=== PATIENT | female | born 1955 | race Caucasian/White ===

== ENCOUNTER 2021-05-19 12:56 | Inpatient (IN) | payer OTHER, MEDICARE, SELFPAY ==
[2021-05-19 13:26] VITALS: BP 145/84; PULSE 85; RESP 18; TEMP 36.7; O2SAT 96
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
[2021-05-19] MEDS: clonazePAM 0.5 MG TABLET PO ×2 (15:08→20:23)
--- NOTE | 2021-05-19 16:59 | PM.IMCN ---
History of Present Illness Data of Consult Service Date: 05/19/21 Requesting physician: Socorro Patterson Primary Care Provider: RUBÉN Flores HPI Reason for consult: Medical consultation 65-year-old woman admitted to for psychiatric care with history of schizophrenia, hypertension. Vital signs are stable. Patient has no acute medical complaints at this time. Review of Systems Review of Systems: Denies any recent fever chills or decrease in appetite respiratory denies any shortness of breath coverage production cardiovascular Denies chest pain gastrointestinal denies any dysphagia abdominal pain nausea vomiting or diarrhea genitourinary denies any dysuria frequency or hematuria musculoskeletal denies any joint pain or swelling neuropsych denies any weakness or seizures all other systems reviewed are negative [facility] Medical History (Updated 05/19/21 @ 17:12 by Jodi Apodaca NP) Barretts esophagus GERD (gastroesophageal reflux disease) Hypertension Pertinent family history: denies cardiac history Surgical History (Updated 05/19/21 @ 17:12 by Jodi Apodaca NP) H/O adenoidectomy History of fundoplication Social History Household Members: Spouse Housing: House Do you presently have visiting nurse or other home services: No Patient Tobacco Use Status: Former Tobacco user Quit Date: 2000 Tobacco use type: Cigarette Cigarette Packs Per Day: 2 Cigarettes Per Day: 40.0 Years Smoked: 15 Smoked in Last 30 Days: No Patient Interested in Nicotine Replacement: No Patient Given Instructions on How to Stop Smoking: No Second Hand Smoke Exposure: No Use of substances other than those prescribed or required for medical reasons: No Currently Displaying Signs/Symptoms of Drug Intoxication Withdrawal: No Any prior treatment program specific to substance use: No Have you been hit, kicked, punched, or otherwise hurt by someone within the past year? If so, by whom?: No Do you feel safe in your current relationship?: Yes Is there a partner from a previous relationship who is making you feel unsafe now?: No Are you made to feel afraid or neglected: No [facility] Practices: [facility] but I don't go to jew Advance Directives: No Advance Directives Information Provided: No Do you have thoughts of harming others: None Do you have a plan to hurt others: No Plan Recently lost weight without trying: No Eating poorly because of decreased appetite: No Patient : No : No Poor oral hygiene: No Meds Allergies Allergy/AdvReac Type Severity Reaction Status Date / Time epinephrine AdvReac HTN Verified 05/19/21 13:29 hydrochlorothiazide AdvReac hypokalemia Verified 05/19/21 13:28 triamterene AdvReac hypokalemia Verified 05/19/21 13:27 Active Medications: Current Medications Generic Name Dose Route Start Last Admin Trade Name Freq PRN Reason Stop Dose Admin Acetaminophen 650 mg 05/19/21 14:10 Acetaminophen 325 Mg Tablet PO Q6H PRN Headache/Pain Mild Scale (1-3) Al Hydroxide/Mg Hydroxide 30 ml 05/19/21 14:10 Magnesium Hydrox/Alum Hydrox 30 Ml Oral.Susp PO Q6H PRN Heartburn/Nausea Clonazepam 0.5 mg 05/19/21 21:00 Clonazepam 0.5 Mg Tablet PO BID [facility] Hydroxyzine HCl 25 mg 05/19/21 14:10 Hydroxyzine Hcl 25 Mg Tablet PO Q6H PRN Anxiety Losartan Potassium 50 mg 05/20/21 09:00 Losartan Potassium 50 Mg Tablet PO DAILY [facility] Protocol Lurasidone HCl 120 mg 05/19/21 17:00 Lurasidone Hcl 40 Mg Tablet PO DAILY@1700 [facility] Magnesium Hydroxide 30 ml 05/19/21 14:10 Milk Of Magnesia 30 Ml Oral.Susp PO DAILY PRN Constipation Perphenazine 4 mg 05/19/21 21:00 Perphenazine 4 Mg Tablet PO BEDTIME [facility] Spironolactone 25 mg 05/20/21 09:00 Spironolactone 25 Mg Tablet PO DAILY [facility] Protocol Trazodone HCl 100 mg 05/19/21 21:00 Trazodone Hcl 100 Mg Tablet PO BEDTIME [facility] Home Medications Medication Instructions Recorded Confirmed Last Taken Type citalopram 40 mg tablet 40 mg PO DAILY 05/19/21 05/19/21 Unknown History lorazepam 1 mg tablet 1 mg PO TID 05/19/21 05/19/21 Unknown History losartan 50 mg tablet 50 mg PO DAILY 05/19/21 05/19/21 Unknown History lurasidone 120 mg tablet (Latuda) 120 mg PO BEDTIME 05/19/21 05/19/21 Unknown History perphenazine 4 mg tablet 4 mg PO BEDTIME 05/19/21 05/19/21 Unknown History spironolactone 25 mg tablet 25 mg PO DAILY 05/19/21 05/19/21 Unknown History trazodone 50 mg tablet 75 mg PO BEDTIME 05/19/21 05/19/21 Unknown History Physical Exam Vital Signs and Narrative: Vital Signs: Last Vital Signs Temp 98.1 F 05/19/21 13:26 Pulse 85 05/19/21 13:26 Resp 18 05/19/21 13:26 BP 145/84 H 05/19/21 13:26 Pulse Ox 96 05/19/21 13:26 Appearing in no acute distress head is normocephalic atraumatic eyes pupils are PERRLA sclera is anicteric mouth throat mucous membranes are intact and moist neck is supple no lymphadenopathy, no JVD noted lung sounds are clear to auscultation heart regular rate rhythm, clear S1, S2 positive bowel sounds, abdomen is soft, nontender neuro patient is alert x3, no focal deficits Assessment and Plan (1) Schizoaffective disorder: Status: Acute (2) Hypertension: Status: Inactive 65-year-old woman admitted to for psychiatric care. Hypertension. Stable blood pressure. continue losartan and spironolactone. Mental health. Continue as per psychiatric team
[2021-05-19] MEDS: Lurasidone HCl 40 MG TABLET 120 MG PO (18:16)
--- NOTE | 2021-05-19 18:27 | PC.ADMIT ---
Kisha Rojas is a 65 year old woman admitted to from [facility] for exacerbation of longstanding schizoaffective disorder in the context of increase in life stressors as retires and finances and health insurance change. She has complex medical issues and appears somatically preoccupied. She notes she was hospitalized three times in her teens and has worked very hard to maintain safety and wellness as an outpatient since that time. She reports that her anxiety about upcoming loss of her current insurance coverage and fear that she and her will be unable to meet their mortgage payments when he retires has led to insomnia and frequent waking. She notes that now and throughout her life decrease in sleep has led to auditory hallucinations specifically muffled voices. The voices say derogatory things about her , they talk badly about me behind my back . They are not command hallucinations. Kisha is unable to identify ways of coping with anxiety besides medications. Kisha notes she does not work or have hobbies. The only activity she finds pleasurable is watching the birds in her yard. She has passive suicidal thoughts, If I didn't wake up it wouldn't matter but I won't hurt myself While doing her med reconciliation it became clear that at times patient overuses laxatives and simethicone. It is unclear if she does this with her prescribed medications. She denies current acute physical complaint.
[2021-05-19] MEDS: Perphenazine 4 MG TABLET PO (20:23)
[2021-05-19] MEDS: traZODone HCL 100 MG TABLET PO (20:23)
[2021-05-19] MEDS: Docusate Sodium 100 MG CAPSULE PO (20:23)
[2021-05-19] MEDS: Melatonin 3 MG TABLET 6 MG PO (20:23)
[2021-05-19] MEDS: Albuterol Sulfate 90 MCG 8 GM INHALER 2 PUFF INHALE (21:19)
[2021-05-19] MEDS: Fluticasone Propionate 250 MCG BLST.W.DEV 1 PUFF INHALE (21:19)
[2021-05-19 21:28] VITALS: BP 127/92; PULSE 88; TEMP 36.9; O2SAT 97
[2021-05-19] MEDS: hydrOXYzine HCL 25 MG TABLET PO (22:35)
[2021-05-19] MEDS: Nystatin Powder 15 GM BOTTLE 1 APPL TOPICAL (22:35)
[2021-05-20 06:00] VITALS: BP 135/82; PULSE 81; RESP 16; TEMP 36.2; O2SAT 95
--- NOTE | 2021-05-20 07:43 | HE.PHANOTE ---
Reached out to the provider to see if they would like to continue the non-formulary Restasis eye drops on the patients home medication list. If they would like to continue the medication in house, then the patients family would need to bring the medication in. Chayo Mcmillan, PharmD [phone]
[2021-05-20 08:50] LABS: Cholesterol 129 mg/dL; HDL Cholesterol 41 mg/dL; LDL Cholesterol Calculated 78 mg/dl; Triglycerides 52 mg/dL
[2021-05-20 08:56] LABS: Estimated Average Glucose 100 mg/dL; Hemoglobin A1c % 5.1 %
[2021-05-20] MEDS: Fluticasone Propionate 250 MCG BLST.W.DEV 1 PUFF INHALE ×2 (09:07→20:53)
[2021-05-20 09:08] VITALS: BP 130/85; PULSE 85
[2021-05-20] MEDS: Docusate Sodium 100 MG CAPSULE PO ×2 (09:08→20:54)
[2021-05-20] MEDS: clonazePAM 0.5 MG TABLET PO ×2 (09:08→20:54)
[2021-05-20] MEDS: Losartan Potassium 50 MG TABLET PO (09:08)
[2021-05-20 09:09] VITALS: BP 130/85; PULSE 85
[2021-05-20] MEDS: Spironolactone 25 MG TABLET PO (09:09)
[2021-05-20 09:13] LABS: Thyroid Stimulating Hormone 2.97 uIU/mL (0.32-4.0)
[2021-05-20] MEDS: Nystatin Powder 15 GM BOTTLE 1 APPL TOPICAL ×2 (09:14→20:57)
[2021-05-20 10:38] LABS: Folate 19.7 ng/mL (> or = 4.0); Vitamin B12 486 pg/mL (200-900)
[2021-05-20] MEDS: Acetaminophen 325 MG TABLET 650 MG PO (12:40)
--- NOTE | 2021-05-20 15:41 | HO.PSYCHPN ---
Subjective Subjective Date of Service: 05/21/21 Reason For Visit: anxiety/depression Subjective Notes: Conditional Voluntary Interim History: Pt slightly more visible today in unit and attending some groups. Pt does report after much questioning that she thinks others at times talk about her. Pt also reports that she ruminates over finances, other people's reactions towards here. She denies plan or intent to hurt self but feels hopeless. She reports feeling very tired, not sleeping but note nursing reports she is sleeping through the night. She is very anxious about medication changes and side effects. Medication Compliance: Yes Side effects from medications: No Review of Systems Review of Systems Denies any recent fever chills or decrease in appetite respiratory denies any shortness of breath coverage production cardiovascular Denies chest pain gastrointestinal denies any dysphagia abdominal pain nausea vomiting or diarrhea genitourinary denies any dysuria frequency or hematuria musculoskeletal denies any joint pain or swelling neuropsych denies any weakness or seizures all other systems reviewed are negative Constitutional: Reports fatigue and Reports lethargy Eyes: Denies blurry vision, Denies diplopia and Reports dry eyes Denies nasal congestion Cardiovascular: Denies chest pain, Denies chest pain at rest, Denies syncope, Denies rapid heart rate and Denies dyspnea Respiratory: Denies dyspnea Gastrointestinal: Reports constipation, Reports heartburn, Denies diarrhea, Denies nausea and Denies vomiting Musculoskeletal: Reports myalgias Denies syncope Endocrine: Reports fatigue Mental Status Exam Mental Status Exam Narrative: Appearance: casually groomed, fair hygiene, somewhat anxious Behavior: anxious but cooperative psychomotor: no agitation or retardation noted Speech:clear, normal rate/rhythm, spontaneous Thought process:mostly linear Thought content: no over paranoid, overly anxious about medications/side effects, [facility]/financial situation Mood: anxious Affect: congruent, restless SI:passive HI:denies VH/AH:intermittent Delusions:some suspiciousness Insight/judgment: fair x 2. Memory/cog: alert, oriented x 3. some memory gaps but not formally tested. May benefit from MOCA. Diagnostics Vital Signs (24Hr): Vital Signs - 24 hr 05/20/21 20:23 05/21/21 07:52 Temperature 97.1 F 97.2 F Pulse Rate 97 86 Blood Pressure 144/93 H 147/84 H Pulse Oximetry 94 Body Mass Index 30.0 Labs Labs: Laboratory Results - last 48 hr 05/20/21 05/20/21 05/20/21 07:41 07:41 07:41 Estimat Average Glucose 100 Hemoglobin A1c % 5.1 Triglycerides 52 Cholesterol 129 LDL Cholesterol, Calc 78 HDL Cholesterol 41 Vitamin B12 486 Folate 19.7 TSH 2.97 Medications Medications Current Medications Acetaminophen (Acetaminophen 325 Mg Tablet) 650 mg PO Q6H PRN PRN Reason: Headache/Pain Mild Scale (1-3) Last Admin: 05/20/21 12:40 Dose: 650 mg Documented by: Al Hydroxide/Mg Hydroxide (Magnesium Hydrox/Alum Hydrox 30 Ml Oral.Susp) 30 ml PO Q6H PRN PRN Reason: Heartburn/Nausea Albuterol Sulfate (Albuterol Sulfate 90 Mcg 8 Gm Inhaler) 2 puff INHALE Q4H PRN PRN Reason: Wheezing Last Admin: 05/19/21 21:19 Dose: 2 puff Documented by: Clonazepam (Clonazepam 0.5 Mg Tablet) 0.5 mg PO DAILY [facility] Clonazepam (Clonazepam 1 Mg Tablet) 1 mg PO BEDTIME [facility] Docusate Sodium (Docusate Sodium 100 Mg Capsule) 100 mg PO BID [facility] Last Admin: 05/21/21 08:15 Dose: 100 mg Documented by: Fluticasone Propionate (Fluticasone Propionate 250 Mcg Blst.W.Dev) 1 puff INHALE RBID [facility] Last Admin: 05/21/21 08:17 Dose: 1 puff Documented by: Hydroxyzine HCl (Hydroxyzine Hcl 25 Mg Tablet) 25 mg PO Q6H PRN PRN Reason: Anxiety Last Admin: 05/21/21 00:01 Dose: 25 mg Documented by: Losartan Potassium (Losartan Potassium 50 Mg Tablet) 50 mg PO DAILY [facility]; Protocol Last Admin: 05/21/21 08:15 Dose: 50 mg Documented by: Lurasidone HCl (Lurasidone Hcl 40 Mg Tablet) 120 mg PO DAILY@1700 [facility] Last Admin: 05/20/21 17:45 Dose: 120 mg Documented by: Magnesium Hydroxide (Milk Of Magnesia 30 Ml Oral.Susp) 30 ml PO DAILY PRN PRN Reason: Constipation Last Admin: 05/20/21 21:03 Dose: 30 ml Documented by: Melatonin (Melatonin 3 Mg Tablet) 6 mg PO BEDTIME [facility] Last Admin: 05/20/21 20:54 Dose: 6 mg Documented by: Non-Formulary Medication (Restasis) 1 drop EYE-BOTH BID [facility] Nystatin (Nystatin Powder 15 Gm Bottle) 1 appl TOPICAL BID [facility]; Protocol Last Admin: 05/21/21 10:07 Dose: 1 appl Documented by: Olanzapine (Olanzapine 2.5 Mg Tablet) 2.5 mg PO BID [facility] Potassium Chloride (Potassium Chloride Er 10 Meq Capsule.Er) 10 meq PO DAILY [facility] Last Admin: 05/21/21 08:15 Dose: 10 meq Documented by: Simethicone (Simethicone 80 Mg Tab.Chew) 80 mg PO QIDWMHS PRN PRN Reason: Gas Spironolactone (Spironolactone 25 Mg Tablet) 25 mg PO DAILY [facility]; Protocol Last Admin: 05/21/21 08:14 Dose: 25 mg Documented by: Tiotropium [place] (Tiotropium [place] 18 Mcg Cap.W.Dev) 1 puff INHALE RDAILY [facility] Last Admin: 05/21/21 08:17 Dose: 1 puff Documented by: Trazodone HCl (Trazodone Hcl 100 Mg Tablet) 100 mg PO BEDTIME [facility] Last Admin: 05/20/21 20:54 Dose: 100 mg Documented by: Allergies Allergies Allergy/AdvReac Type Severity Reaction Status Date / Time epinephrine AdvReac HTN Verified 05/19/21 13:29 hydrochlorothiazide AdvReac hypokalemia Verified 05/19/21 13:28 triamterene AdvReac hypokalemia Verified 05/19/21 13:27 Assessment & Plan Assessment & Plan (1) Schizoaffective disorder: Status: Acute Code(s): F25.9 - Schizoaffective disorder, unspecified (2) Hypertension: Status: Inactive Code(s): I10 - Essential (primary) hypertension Assessment and Plan: 65-year-old woman admitted to for psychiatric care. Hypertension. Stable blood pressure. continue losartan and spironolactone. Mental health. Continue as per psychiatric team Greater than 50% of the session was spent on counseling and/or coordination of care Reason for contiued inpatient stay Substantial Risk for: inability to function
[2021-05-20] MEDS: Lurasidone HCl 40 MG TABLET 120 MG PO (17:45)
[2021-05-20 20:23] VITALS: BP 144/93; PULSE 97; TEMP 36.2; O2SAT 94
[2021-05-20] MEDS: Perphenazine 4 MG TABLET PO (20:54)
[2021-05-20] MEDS: traZODone HCL 100 MG TABLET PO (20:54)
[2021-05-20] MEDS: Melatonin 3 MG TABLET 6 MG PO (20:54)
[2021-05-20] MEDS: Milk of Magnesia 30 ML ORAL.SUSP PO (21:03)
[2021-05-21] MEDS: hydrOXYzine HCL 25 MG TABLET PO ×2 (00:01→20:35)
[2021-05-21 07:52] VITALS: BP 147/84; PULSE 86; TEMP 36.2
[2021-05-21] MEDS: Spironolactone 25 MG TABLET PO (08:14)
[2021-05-21] MEDS: Docusate Sodium 100 MG CAPSULE PO ×2 (08:15→20:25)
[2021-05-21] MEDS: clonazePAM 0.5 MG TABLET PO (08:15)
[2021-05-21] MEDS: Losartan Potassium 50 MG TABLET PO (08:15)
[2021-05-21] MEDS: Fluticasone Propionate 250 MCG BLST.W.DEV 1 PUFF INHALE ×2 (08:17→20:35)
[2021-05-21] MEDS: Nystatin Powder 15 GM BOTTLE 1 APPL TOPICAL ×2 (10:07→20:35)
--- NOTE | 2021-05-21 15:44 | P.PNPSI_ITS ---
Subjective Subjective Date of Service: 05/21/21 Reason For Visit: anxiety/depression Subjective Notes: Conditional Voluntary Interim History: Pt presents as very anxious today. She reports she worries that once retires she may not want to be with him all the time, pt also overwhelmed by financial situation to some extreme. Pt reports she hears voices at times and some paranoia, very concern about side effects of medications and weight gain. We discussed switching perphenazine to olanzapine for mood/AH, given that in past pt had EPS and dystonic reactions with higher potency antipsychotics. Will continue latuda for now but may not be doing much for pt at this point. Medication Compliance: Yes Side effects from medications: No Attending Groups: Intermittent Review of Systems Review of Systems Denies any recent fever chills or decrease in appetite respiratory denies any shortness of breath coverage production cardiovascular Denies chest pain gastrointestinal denies any dysphagia abdominal pain nausea vomiting or diarrhea genitourinary denies any dysuria frequency or hematuria musculoskeletal denies any joint pain or swelling neuropsych denies any weakness or seizures all other systems reviewed are negative Constitutional: Reports fatigue and Reports lethargy Eyes: Denies blurry vision, Denies diplopia and Reports dry eyes Denies nasal congestion Cardiovascular: Denies chest pain, Denies chest pain at rest, Denies syncope, Denies rapid heart rate and Denies dyspnea Respiratory: Denies dyspnea Gastrointestinal: Reports constipation, Reports heartburn, Denies diarrhea, Denies nausea and Denies vomiting Musculoskeletal: Reports myalgias Denies syncope Endocrine: Reports fatigue Mental Status Exam Mental Status Exam Narrative: Appearance: casually groomed, fair hygiene, somewhat anxious Behavior: anxious but cooperative psychomotor: no agitation or retardation noted Speech:clear, normal rate/rhythm, spontaneous Thought process:mostly linear Thought content: no over paranoid, overly anxious about medications/side effects, [facility]/financial situation Mood: anxious Affect: congruent, restless SI:passive HI:denies VH/AH:intermittent Delusions:some suspiciousness Insight/judgment: fair x 2. Memory/cog: alert, oriented x 3. some memory gaps but not formally tested. May benefit from MOCA. Diagnostics Vital Signs (24Hr): Vital Signs - 24 hr 05/20/21 20:23 05/21/21 07:52 Temperature 97.1 F 97.2 F Pulse Rate 97 86 Blood Pressure 144/93 H 147/84 H Pulse Oximetry 94 Body Mass Index 30.0 Labs Labs: Laboratory Results - last 48 hr 05/20/21 05/20/21 05/20/21 07:41 07:41 07:41 Estimat Average Glucose 100 Hemoglobin A1c % 5.1 Triglycerides 52 Cholesterol 129 LDL Cholesterol, Calc 78 HDL Cholesterol 41 Vitamin B12 486 Folate 19.7 TSH 2.97 Medications Medications Current Medications Acetaminophen (Acetaminophen 325 Mg Tablet) 650 mg PO Q6H PRN PRN Reason: Headache/Pain Mild Scale (1-3) Last Admin: 05/20/21 12:40 Dose: 650 mg Documented by: Al Hydroxide/Mg Hydroxide (Magnesium Hydrox/Alum Hydrox 30 Ml Oral.Susp) 30 ml PO Q6H PRN PRN Reason: Heartburn/Nausea Albuterol Sulfate (Albuterol Sulfate 90 Mcg 8 Gm Inhaler) 2 puff INHALE Q4H PRN PRN Reason: Wheezing Last Admin: 05/19/21 21:19 Dose: 2 puff Documented by: Clonazepam (Clonazepam 0.5 Mg Tablet) 0.5 mg PO DAILY [facility] Clonazepam (Clonazepam 1 Mg Tablet) 1 mg PO BEDTIME [facility] Docusate Sodium (Docusate Sodium 100 Mg Capsule) 100 mg PO BID [facility] Last Admin: 05/21/21 08:15 Dose: 100 mg Documented by: Fluticasone Propionate (Fluticasone Propionate 250 Mcg Blst.W.Dev) 1 puff INHALE RBID [facility] Last Admin: 05/21/21 08:17 Dose: 1 puff Documented by: Hydroxyzine HCl (Hydroxyzine Hcl 25 Mg Tablet) 25 mg PO Q6H PRN PRN Reason: Anxiety Last Admin: 05/21/21 00:01 Dose: 25 mg Documented by: Losartan Potassium (Losartan Potassium 50 Mg Tablet) 50 mg PO DAILY [facility]; Protocol Last Admin: 05/21/21 08:15 Dose: 50 mg Documented by: Lurasidone HCl (Lurasidone Hcl 40 Mg Tablet) 120 mg PO DAILY@1700 [facility] Last Admin: 05/20/21 17:45 Dose: 120 mg Documented by: Magnesium Hydroxide (Milk Of Magnesia 30 Ml Oral.Susp) 30 ml PO DAILY PRN PRN Reason: Constipation Last Admin: 05/20/21 21:03 Dose: 30 ml Documented by: Melatonin (Melatonin 3 Mg Tablet) 6 mg PO BEDTIME [facility] Last Admin: 05/20/21 20:54 Dose: 6 mg Documented by: Non-Formulary Medication (Restasis) 1 drop EYE-BOTH BID [facility] Nystatin (Nystatin Powder 15 Gm Bottle) 1 appl TOPICAL BID [facility]; Protocol Last Admin: 05/21/21 10:07 Dose: 1 appl Documented by: Olanzapine (Olanzapine 2.5 Mg Tablet) 2.5 mg PO BID [facility] Potassium Chloride (Potassium Chloride Er 10 Meq Capsule.Er) 10 meq PO DAILY [facility] Last Admin: 05/21/21 08:15 Dose: 10 meq Documented by: Simethicone (Simethicone 80 Mg Tab.Chew) 80 mg PO QIDWMHS PRN PRN Reason: Gas Spironolactone (Spironolactone 25 Mg Tablet) 25 mg PO DAILY [facility]; Protocol Last Admin: 05/21/21 08:14 Dose: 25 mg Documented by: Tiotropium [place] (Tiotropium [place] 18 Mcg Cap.W.Dev) 1 puff INHALE RDAILY [facility] Last Admin: 05/21/21 08:17 Dose: 1 puff Documented by: Trazodone HCl (Trazodone Hcl 100 Mg Tablet) 100 mg PO BEDTIME [facility] Last Admin: 05/20/21 20:54 Dose: 100 mg Documented by: Allergies Allergies Allergy/AdvReac Type Severity Reaction Status Date / Time epinephrine AdvReac HTN Verified 05/19/21 13:29 hydrochlorothiazide AdvReac hypokalemia Verified 05/19/21 13:28 triamterene AdvReac hypokalemia Verified 05/19/21 13:27 Assessment & Plan Assessment & Plan (1) Schizoaffective disorder: Status: Acute Code(s): F25.9 - Schizoaffective disorder, unspecified (2) Hypertension: Status: Inactive Code(s): I10 - Essential (primary) hypertension Assessment and Plan: Mrs. Rojas is a 65 year-old woman with hx of schizoaffective disorder who was admitted due to increased anxious mood, ruminating thoughts, AH, vague paranoia. PLAN 1. will switch perphenazine to olanzapine for mood/anxiety/AH/paranoia 2. will continue latuda at current dose but suspect at this point this medication not doing much for pt. 3. Pt was switched from ativan to clonazepam, will increase night time dose of clonazepam to 1mg po qhs, will consider lowering as pt presents as much less anxious and ruminative. 4. Aftercare planning. Greater than 50% of the session was spent on counseling and/or coordination of care Reason for contiued inpatient stay Substantial Risk for: inability to function
[2021-05-21] MEDS: OLANZapine 2.5 MG TABLET PO ×2 (16:48→20:25)
[2021-05-21] MEDS: Lurasidone HCl 40 MG TABLET 120 MG PO (16:48)
[2021-05-21] MEDS: Escitalopram Oxalate 5 MG TABLET PO (17:47)
[2021-05-21 20:19] VITALS: BP 132/94; PULSE 93; TEMP 35.7; O2SAT 95
[2021-05-21] MEDS: clonazePAM 1 MG TABLET PO (20:25)
[2021-05-21] MEDS: Melatonin 3 MG TABLET 6 MG PO (20:25)
[2021-05-21] MEDS: traZODone HCL 100 MG TABLET PO (20:25)
--- NOTE | 2021-05-22 08:29 | HO.PSYCHPN ---
Subjective Subjective Date of Service: 05/23/21 Reason For Visit: anxiety/depression Interim History: 05/21:Pt presents as very anxious today. She reports she worries that once retires she may not want to be with him all the time, pt also overwhelmed by financial situation to some extreme. Pt reports she hears voices at times and some paranoia, very concern about side effects of medications and weight gain. We discussed switching perphenazine to olanzapine for mood/AH, given that in past pt had EPS and dystonic reactions with higher potency antipsychotics. Will continue latuda for now but may not be doing much for pt at this point. 05/22: Pt seen in [facility]. Feels mildly sedated but pleased with better sleep. Does not want any med changes today. Fall precautions reiterated Review of Systems Review of Systems Denies any recent fever chills or decrease in appetite respiratory denies any shortness of breath coverage production cardiovascular Denies chest pain gastrointestinal denies any dysphagia abdominal pain nausea vomiting or diarrhea genitourinary denies any dysuria frequency or hematuria musculoskeletal denies any joint pain or swelling neuropsych denies any weakness or seizures all other systems reviewed are negative Constitutional: Reports fatigue and Reports lethargy Eyes: Denies blurry vision, Denies diplopia and Reports dry eyes Denies nasal congestion Cardiovascular: Denies chest pain, Denies chest pain at rest, Denies syncope, Denies rapid heart rate and Denies dyspnea Respiratory: Denies dyspnea Gastrointestinal: Reports constipation, Reports heartburn, Denies diarrhea, Denies nausea and Denies vomiting Musculoskeletal: Reports myalgias Denies syncope Endocrine: Reports fatigue Mental Status Exam Mental Status Exam Narrative: Appearance: casually groomed, fair hygiene, somewhat anxious Behavior: anxious but cooperative psychomotor: no agitation or retardation noted Speech:clear, normal rate/rhythm, spontaneous Thought process:mostly linear Thought content: no over paranoid, overly anxious about medications/side effects, residential/financial situation Mood: anxious Affect: congruent, restless SI:passive HI:denies VH/AH:intermittent Delusions:some suspiciousness Insight/judgment: fair x 2. Memory/cog: alert, oriented x 3. some memory gaps but not formally tested. May benefit from MOCA. Diagnostics Vital Signs (24Hr): Vital Signs - 24 hr 05/21/21 20:19 Temperature 96.2 F L Pulse Rate 93 Blood Pressure 132/94 H Pulse Oximetry 95 Body Mass Index 30.0 Labs Results: 05/22/21 08:13 Labs: Laboratory Results - last 48 hr 05/20/21 05/20/21 05/20/21 07:41 07:41 07:41 Estimat Average Glucose 100 Hemoglobin A1c % 5.1 Triglycerides 52 Cholesterol 129 LDL Cholesterol, Calc 78 HDL Cholesterol 41 Vitamin B12 486 Folate 19.7 TSH 2.97 Medications Medications Current Medications Acetaminophen (Acetaminophen 325 Mg Tablet) 650 mg PO Q6H PRN PRN Reason: Headache/Pain Mild Scale (1-3) Last Admin: 05/20/21 12:40 Dose: 650 mg Documented by: Al Hydroxide/Mg Hydroxide (Magnesium Hydrox/Alum Hydrox 30 Ml Oral.Susp) 30 ml PO Q6H PRN PRN Reason: Heartburn/Nausea Albuterol Sulfate (Albuterol Sulfate 90 Mcg 8 Gm Inhaler) 2 puff INHALE Q4H PRN PRN Reason: Wheezing Last Admin: 05/19/21 21:19 Dose: 2 puff Documented by: Clonazepam (Clonazepam 0.5 Mg Tablet) 0.5 mg PO DAILY [facility] Clonazepam (Clonazepam 1 Mg Tablet) 1 mg PO BEDTIME [facility] Last Admin: 05/21/21 20:25 Dose: 1 mg Documented by: Docusate Sodium (Docusate Sodium 100 Mg Capsule) 100 mg PO BID [facility] Last Admin: 05/21/21 20:25 Dose: 100 mg Documented by: Escitalopram Oxalate (Escitalopram Oxalate 5 Mg Tablet) 5 mg PO DAILY [facility] Last Admin: 05/21/21 17:47 Dose: 5 mg Documented by: Fluticasone Propionate (Fluticasone Propionate 250 Mcg Blst.W.Dev) 1 puff INHALE RBID [facility] Last Admin: 05/21/21 20:35 Dose: 1 puff Documented by: Hydroxyzine HCl (Hydroxyzine Hcl 25 Mg Tablet) 25 mg PO Q6H PRN PRN Reason: Anxiety Last Admin: 05/21/21 20:35 Dose: 25 mg Documented by: Losartan Potassium (Losartan Potassium 50 Mg Tablet) 50 mg PO DAILY [facility]; Protocol Last Admin: 05/21/21 08:15 Dose: 50 mg Documented by: Lurasidone HCl (Lurasidone Hcl 40 Mg Tablet) 120 mg PO DAILY@1700 [facility] Last Admin: 05/21/21 16:48 Dose: 120 mg Documented by: Magnesium Hydroxide (Milk Of Magnesia 30 Ml Oral.Susp) 30 ml PO DAILY PRN PRN Reason: Constipation Last Admin: 05/20/21 21:03 Dose: 30 ml Documented by: Melatonin (Melatonin 3 Mg Tablet) 6 mg PO BEDTIME [facility] Last Admin: 05/21/21 20:25 Dose: 6 mg Documented by: Patient Own Medication (Restasis ) 1 each EYE-BOTH BID [facility] Nystatin (Nystatin Powder 15 Gm Bottle) 1 appl TOPICAL BID [facility]; Protocol Last Admin: 05/21/21 20:35 Dose: 1 appl Documented by: Olanzapine (Olanzapine 2.5 Mg Tablet) 2.5 mg PO BID [facility] Last Admin: 05/21/21 20:25 Dose: 2.5 mg Documented by: Potassium Chloride (Potassium Chloride Er 10 Meq Capsule.Er) 10 meq PO DAILY [facility] Last Admin: 05/21/21 08:15 Dose: 10 meq Documented by: Simethicone (Simethicone 80 Mg Tab.Chew) 80 mg PO QIDWMHS PRN PRN Reason: Gas Spironolactone (Spironolactone 25 Mg Tablet) 25 mg PO DAILY [facility]; Protocol Last Admin: 05/21/21 08:14 Dose: 25 mg Documented by: Tiotropium [place] (Tiotropium [place] 18 Mcg Cap.W.Dev) 1 puff INHALE RDAILY [facility] Last Admin: 05/21/21 08:17 Dose: 1 puff Documented by: Trazodone HCl (Trazodone Hcl 100 Mg Tablet) 100 mg PO BEDTIME [facility] Last Admin: 05/21/21 20:25 Dose: 100 mg Documented by: Allergies Allergies Allergy/AdvReac Type Severity Reaction Status Date / Time epinephrine AdvReac HTN Verified 05/19/21 13:29 hydrochlorothiazide AdvReac hypokalemia Verified 05/19/21 13:28 triamterene AdvReac hypokalemia Verified 05/19/21 13:27 Assessment & Plan Assessment & Plan (1) Schizoaffective disorder: Status: Acute Code(s): F25.9 - Schizoaffective disorder, unspecified (2) Hypertension: Status: Inactive Code(s): I10 - Essential (primary) hypertension Assessment and Plan: Mrs. Rojas is a 65 year-old woman with hx of schizoaffective disorder who was admitted due to increased anxious mood, ruminating thoughts, AH, vague paranoia. PLAN 1. will switch perphenazine to olanzapine for mood/anxiety/AH/paranoia 2. will continue latuda at current dose but suspect at this point this medication not doing much for pt. 3. Pt was switched from ativan to clonazepam, will increase night time dose of clonazepam to 1mg po qhs, will consider lowering as pt presents as much less anxious and ruminative. 4. Aftercare planning. 05/22: Ct above Rx plan Greater than 50% of the session was spent on counseling and/or coordination of care Reason for contiued inpatient stay Substantial Risk for: inability to function
[2021-05-22 08:45] VITALS: BP 166/90; PULSE 82; RESP 18; TEMP 36.2; O2SAT 99
[2021-05-22] MEDS: OLANZapine 2.5 MG TABLET PO ×2 (08:53→20:40)
[2021-05-22 08:54] VITALS: BP 166/90; PULSE 82
[2021-05-22] MEDS: Losartan Potassium 50 MG TABLET PO ×2 (08:54→13:19)
[2021-05-22] MEDS: Escitalopram Oxalate 5 MG TABLET PO (08:54)
[2021-05-22] MEDS: Docusate Sodium 100 MG CAPSULE PO ×2 (08:54→20:40)
[2021-05-22] MEDS: Spironolactone 25 MG TABLET PO (08:54)
[2021-05-22] MEDS: clonazePAM 0.5 MG TABLET PO (08:54)
[2021-05-22 09:48] LABS: Potassium 4.2 mmol/L (3.3-5.1)
[2021-05-22] MEDS: Nystatin Powder 15 GM BOTTLE 1 APPL TOPICAL ×2 (10:15→20:50)
[2021-05-22] MEDS: Fluticasone Propionate 250 MCG BLST.W.DEV 1 PUFF INHALE ×2 (10:15→20:50)
[2021-05-22 12:30] VITALS: BP 163/85
[2021-05-22 13:19] VITALS: BP 155/75; PULSE 92
[2021-05-22 13:40] VITALS: BP 155/75
--- NOTE | 2021-05-22 14:20 | PC.NURSE ---
Reported to Dr Devlin that 0900 BP was 166/90 and at 1230 BP was 163/85. I stated to Dr Devlin that I gave pt morning meds and to please advise if I should give patient any additional meds due to high BP. changed Losartan potassium order in system
[2021-05-22] MEDS: Lurasidone HCl 40 MG TABLET 120 MG PO (18:05)
[2021-05-22] MEDS: Acetaminophen 325 MG TABLET 650 MG PO (19:11)
[2021-05-22] MEDS: traZODone HCL 100 MG TABLET PO (20:40)
[2021-05-22] MEDS: Melatonin 3 MG TABLET 6 MG PO (20:40)
[2021-05-22] MEDS: hydrOXYzine HCL 25 MG TABLET PO (20:40)
[2021-05-22] MEDS: clonazePAM 1 MG TABLET PO (20:40)
[2021-05-22 20:53] VITALS: BP 135/85; PULSE 88; TEMP 35.4; O2SAT 96
[2021-05-23 07:50] VITALS: BP 126/75; PULSE 88; RESP 18; TEMP 36.3; O2SAT 97
[2021-05-23 08:08] VITALS: BP 126/75; PULSE 88
[2021-05-23] MEDS: Losartan Potassium 50 MG TABLET 100 MG PO (08:08)
[2021-05-23 08:09] VITALS: BP 126/75; PULSE 88
[2021-05-23] MEDS: clonazePAM 0.5 MG TABLET PO (08:09)
[2021-05-23] MEDS: Escitalopram Oxalate 5 MG TABLET PO (08:09)
[2021-05-23] MEDS: Docusate Sodium 100 MG CAPSULE PO ×2 (08:09→20:28)
[2021-05-23] MEDS: OLANZapine 2.5 MG TABLET PO ×2 (08:09→20:28)
[2021-05-23] MEDS: Spironolactone 25 MG TABLET PO (08:09)
--- NOTE | 2021-05-23 08:10 | HO.PSYCHPN ---
Subjective Subjective Date of Service: 05/23/21 Reason For Visit: anxiety/depression Interim History: 05/21:Pt presents as very anxious today. She reports she worries that once retires she may not want to be with him all the time, pt also overwhelmed by financial situation to some extreme. Pt reports she hears voices at times and some paranoia, very concern about side effects of medications and weight gain. We discussed switching perphenazine to olanzapine for mood/AH, given that in past pt had EPS and dystonic reactions with higher potency antipsychotics. Will continue latuda for now but may not be doing much for pt at this point. 05/22: Pt seen in [facility]. Feels mildly sedated but pleased with better sleep. Does not want any med changes today. Fall precautions reiterated 05/23: Pleased with second night of good sleep. Some a.m sedation wears off quickly. Ct med regimen Medication Compliance: Yes Side effects from medications: No Review of Systems Acute medical concerns: Yes Review of Systems Review of Systems Denies any recent fever chills or decrease in appetite respiratory denies any shortness of breath coverage production cardiovascular Denies chest pain gastrointestinal denies any dysphagia abdominal pain nausea vomiting or diarrhea genitourinary denies any dysuria frequency or hematuria musculoskeletal denies any joint pain or swelling neuropsych denies any weakness or seizures all other systems reviewed are negative Constitutional: Reports fatigue and Reports lethargy Eyes: Denies blurry vision, Denies diplopia and Reports dry eyes Denies nasal congestion Cardiovascular: Denies chest pain, Denies chest pain at rest, Denies syncope, Denies rapid heart rate and Denies dyspnea Respiratory: Denies dyspnea Gastrointestinal: Reports constipation, Reports heartburn, Denies diarrhea, Denies nausea and Denies vomiting Musculoskeletal: Reports myalgias Denies syncope Endocrine: Reports fatigue Mental Status Exam Mental Status Exam Narrative: Appearance: casually groomed, fair hygiene, somewhat anxious Behavior: anxious but cooperative psychomotor: no agitation or retardation noted Speech:clear, normal rate/rhythm, spontaneous Thought process:mostly linear Thought content: no over paranoid, overly anxious about medications/side effects, care home/financial situation Mood: anxious Affect: congruent, restless SI:passive HI:denies VH/AH:intermittent Delusions:some suspiciousness Insight/judgment: fair x 2. Memory/cog: alert, oriented x 3. some memory gaps but not formally tested. May benefit from MOCA. Diagnostics Vital Signs (24Hr): Vital Signs - 24 hr 05/22/21 08:45 05/22/21 08:54 05/22/21 12:30 Temperature 97.2 F Pulse Rate 82 82 Respiratory Rate 18 Blood Pressure 166/90 H 166/90 H 163/85 H Pulse Oximetry 99 05/22/21 13:19 05/22/21 13:40 05/22/21 20:53 Temperature 95.8 F L Pulse Rate 92 88 Respiratory Rate Blood Pressure 155/75 H 155/75 H 135/85 Pulse Oximetry 96 Body Mass Index 30.0 Labs Results: 05/22/21 08:13 Labs: Laboratory Results - last 48 hr 05/22/21 08:13 Potassium 4.2 Medications Medications Current Medications Acetaminophen (Acetaminophen 325 Mg Tablet) 650 mg PO Q6H PRN PRN Reason: Headache/Pain Mild Scale (1-3) Last Admin: 05/22/21 19:11 Dose: 650 mg Documented by: Al Hydroxide/Mg Hydroxide (Magnesium Hydrox/Alum Hydrox 30 Ml Oral.Susp) 30 ml PO Q6H PRN PRN Reason: Heartburn/Nausea Albuterol Sulfate (Albuterol Sulfate 90 Mcg 8 Gm Inhaler) 2 puff INHALE Q4H PRN PRN Reason: Wheezing Last Admin: 05/19/21 21:19 Dose: 2 puff Documented by: Clonazepam (Clonazepam 0.5 Mg Tablet) 0.5 mg PO DAILY [facility] Last Admin: 05/22/21 08:54 Dose: 0.5 mg Documented by: Clonazepam (Clonazepam 1 Mg Tablet) 1 mg PO BEDTIME [facility] Last Admin: 05/22/21 20:40 Dose: 1 mg Documented by: Docusate Sodium (Docusate Sodium 100 Mg Capsule) 100 mg PO BID [facility] Last Admin: 05/22/21 20:40 Dose: 100 mg Documented by: Escitalopram Oxalate (Escitalopram Oxalate 5 Mg Tablet) 5 mg PO DAILY [facility] Last Admin: 05/22/21 08:54 Dose: 5 mg Documented by: Fluticasone Propionate (Fluticasone Propionate 250 Mcg Blst.W.Dev) 1 puff INHALE RBID [facility] Last Admin: 05/22/21 20:50 Dose: 1 puff Documented by: Hydroxyzine HCl (Hydroxyzine Hcl 25 Mg Tablet) 25 mg PO Q6H PRN PRN Reason: Anxiety Last Admin: 05/22/21 20:40 Dose: 25 mg Documented by: Losartan Potassium (Losartan Potassium 50 Mg Tablet) 100 mg PO DAILY [facility]; Protocol Lurasidone HCl (Lurasidone Hcl 40 Mg Tablet) 120 mg PO DAILY@1700 [facility] Last Admin: 05/22/21 18:05 Dose: 120 mg Documented by: Magnesium Hydroxide (Milk Of Magnesia 30 Ml Oral.Susp) 30 ml PO DAILY PRN PRN Reason: Constipation Last Admin: 05/20/21 21:03 Dose: 30 ml Documented by: Melatonin (Melatonin 3 Mg Tablet) 6 mg PO BEDTIME [facility] Last Admin: 05/22/21 20:40 Dose: 6 mg Documented by: Patient Own Medication (Restasis ) 1 each EYE-BOTH BID [facility] Last Admin: 05/22/21 20:50 Dose: 1 each Documented by: Nystatin (Nystatin Powder 15 Gm Bottle) 1 appl TOPICAL BID [facility]; Protocol Last Admin: 05/22/21 20:50 Dose: 1 appl Documented by: Olanzapine (Olanzapine 2.5 Mg Tablet) 2.5 mg PO BID [facility] Last Admin: 05/22/21 20:40 Dose: 2.5 mg Documented by: Potassium Chloride (Potassium Chloride Er 10 Meq Capsule.Er) 10 meq PO DAILY [facility] Last Admin: 05/22/21 08:53 Dose: 10 meq Documented by: Simethicone (Simethicone 80 Mg Tab.Chew) 80 mg PO QIDWMHS PRN PRN Reason: Gas Spironolactone (Spironolactone 25 Mg Tablet) 25 mg PO DAILY [facility]; Protocol Last Admin: 05/22/21 08:54 Dose: 25 mg Documented by: Tiotropium [place] (Tiotropium [place] 18 Mcg Cap.W.Dev) 1 puff INHALE RDAILY [facility] Last Admin: 05/22/21 10:16 Dose: 1 puff Documented by: Trazodone HCl (Trazodone Hcl 100 Mg Tablet) 100 mg PO BEDTIME [facility] Last Admin: 05/22/21 20:40 Dose: 100 mg Documented by: Allergies Allergies Allergy/AdvReac Type Severity Reaction Status Date / Time epinephrine AdvReac HTN Verified 05/19/21 13:29 hydrochlorothiazide AdvReac hypokalemia Verified 05/19/21 13:28 triamterene AdvReac hypokalemia Verified 05/19/21 13:27 Assessment & Plan Assessment & Plan (1) Schizoaffective disorder: Status: Acute Code(s): F25.9 - Schizoaffective disorder, unspecified (2) Hypertension: Status: Inactive Code(s): I10 - Essential (primary) hypertension Assessment and Plan: Mrs. Rojas is a 65 year-old woman with hx of schizoaffective disorder who was admitted due to increased anxious mood, ruminating thoughts, AH, vague paranoia. PLAN 1. will switch perphenazine to olanzapine for mood/anxiety/AH/paranoia 2. will continue latuda at current dose but suspect at this point this medication not doing much for pt. 3. Pt was switched from ativan to clonazepam, will increase night time dose of clonazepam to 1mg po qhs, will consider lowering as pt presents as much less anxious and ruminative. 4. Aftercare planning. 05/23: Ct above Rx plan Greater than 50% of the session was spent on counseling and/or coordination of care Reason for contiued inpatient stay Substantial Risk for: inability to function
[2021-05-23] MEDS: Nystatin Powder 15 GM BOTTLE 1 APPL TOPICAL ×2 (10:21→20:28)
[2021-05-23] MEDS: Fluticasone Propionate 250 MCG BLST.W.DEV 1 PUFF INHALE ×2 (10:21→20:28)
[2021-05-23] MEDS: Acetaminophen 325 MG TABLET 650 MG PO (10:48)
[2021-05-23] MEDS: Lurasidone HCl 40 MG TABLET 120 MG PO (18:11)
[2021-05-23 20:20] VITALS: BP 146/84; PULSE 80; RESP 18; TEMP 36.4; O2SAT 97
[2021-05-23] MEDS: traZODone HCL 100 MG TABLET PO (20:28)
[2021-05-23] MEDS: Melatonin 3 MG TABLET 6 MG PO (20:28)
[2021-05-23] MEDS: clonazePAM 1 MG TABLET PO (20:28)
[2021-05-23] MEDS: Milk of Magnesia 30 ML ORAL.SUSP PO (20:28)
[2021-05-23] MEDS: hydrOXYzine HCL 25 MG TABLET PO (21:42)
[2021-05-24 06:00] VITALS: BP 143/82; PULSE 70; RESP 20; TEMP 36.4; O2SAT 98
[2021-05-24] MEDS: Escitalopram Oxalate 5 MG TABLET PO (08:31)
[2021-05-24] MEDS: Losartan Potassium 50 MG TABLET 100 MG PO (08:31)
[2021-05-24] MEDS: Spironolactone 25 MG TABLET PO (08:32)
[2021-05-24] MEDS: OLANZapine 2.5 MG TABLET PO (08:32)
[2021-05-24] MEDS: clonazePAM 0.5 MG TABLET PO ×2 (08:32→21:14)
[2021-05-24] MEDS: Docusate Sodium 100 MG CAPSULE PO (08:32)
[2021-05-24] MEDS: Fluticasone Propionate 250 MCG BLST.W.DEV 1 PUFF INHALE ×2 (08:34→21:11)
[2021-05-24] MEDS: Nystatin Powder 15 GM BOTTLE 1 APPL TOPICAL ×2 (08:34→21:18)
--- NOTE | 2021-05-24 13:48 | HO.PSYCHPN ---
Subjective Subjective Date of Service: 05/24/21 Reason For Visit: anxiety/depression Subjective Notes: Conditional Voluntary Healthcare Proxy: No Guardianship: No Interim History: Pt reports feeling slightly less anxious. She reports sleeping better as well. She reports less ruminations about her upcoming longterm, financial situation, change in health insurance. She denies SI/HI. She does report some mild sedation during the day and constipation. She has been more visible in the unit, social with select peers. We discussed decreasing clonazepam at bedtime, increasing olanzapine at night. suspect olanzapine decreasing anxiety/paranoia and ruminations. Medication Compliance: Yes Side effects from medications: No Review of Systems Review of Systems Denies any recent fever chills or decrease in appetite respiratory denies any shortness of breath coverage production cardiovascular Denies chest pain gastrointestinal denies any dysphagia abdominal pain nausea vomiting or diarrhea genitourinary denies any dysuria frequency or hematuria musculoskeletal denies any joint pain or swelling neuropsych denies any weakness or seizures all other systems reviewed are negative Constitutional: Reports fatigue and Reports lethargy Eyes: Denies blurry vision, Denies diplopia and Reports dry eyes Denies nasal congestion Cardiovascular: Denies chest pain, Denies chest pain at rest, Denies syncope, Denies rapid heart rate and Denies dyspnea Respiratory: Denies dyspnea Gastrointestinal: Reports constipation, Reports heartburn, Denies diarrhea, Denies nausea and Denies vomiting Musculoskeletal: Reports myalgias Denies syncope Endocrine: Reports fatigue Mental Status Exam Mental Status Exam Narrative: Appearance: casually groomed, fair hygiene, somewhat anxious Behavior: anxious but cooperative psychomotor: no agitation or retardation noted Speech:clear, normal rate/rhythm, spontaneous Thought process:mostly linear Thought content: no overt paranoia, less anxious about medications/side effects, longterm/financial situation Mood: anxious Affect: congruent, restless SI:denies HI:denies VH/AH:intermittent Delusions:some suspiciousness Insight/judgment: fair x 2. Memory/cog: alert, oriented x 3. some memory gaps but not formally tested. May benefit from MOCA. Diagnostics Vital Signs (24Hr): Vital Signs - 24 hr 05/23/21 20:20 05/24/21 06:00 Temperature 97.6 F 97.6 F Pulse Rate 80 70 Respiratory Rate 18 20 Blood Pressure 146/84 H 143/82 H Pulse Oximetry 97 98 Body Mass Index 30.0 Labs Results: 05/22/21 08:13 Medications Medications Current Medications Acetaminophen (Acetaminophen 325 Mg Tablet) 650 mg PO Q6H PRN PRN Reason: Headache/Pain Mild Scale (1-3) Last Admin: 05/23/21 10:48 Dose: 650 mg Documented by: Al Hydroxide/Mg Hydroxide (Magnesium Hydrox/Alum Hydrox 30 Ml Oral.Susp) 30 ml PO Q6H PRN PRN Reason: Heartburn/Nausea Albuterol Sulfate (Albuterol Sulfate 90 Mcg 8 Gm Inhaler) 2 puff INHALE Q4H PRN PRN Reason: Wheezing Last Admin: 05/19/21 21:19 Dose: 2 puff Documented by: Clonazepam (Clonazepam 0.5 Mg Tablet) 0.5 mg PO BID [facility] Docusate Sodium (Docusate Sodium 100 Mg Capsule) 100 mg PO BID [facility] Last Admin: 05/24/21 08:32 Dose: 100 mg Documented by: Escitalopram Oxalate (Escitalopram Oxalate 5 Mg Tablet) 5 mg PO DAILY [facility] Last Admin: 05/24/21 08:31 Dose: 5 mg Documented by: Fluticasone Propionate (Fluticasone Propionate 250 Mcg Blst.W.Dev) 1 puff INHALE RBID [facility] Last Admin: 05/24/21 08:34 Dose: 1 puff Documented by: Hydroxyzine HCl (Hydroxyzine Hcl 25 Mg Tablet) 25 mg PO Q6H PRN PRN Reason: Anxiety Last Admin: 05/23/21 21:42 Dose: 25 mg Documented by: Losartan Potassium (Losartan Potassium 50 Mg Tablet) 100 mg PO DAILY [facility]; Protocol Last Admin: 05/24/21 08:31 Dose: 100 mg Documented by: Lurasidone HCl (Lurasidone Hcl 40 Mg Tablet) 120 mg PO DAILY@1700 [facility] Last Admin: 05/23/21 18:11 Dose: 120 mg Documented by: Magnesium Hydroxide (Milk Of Magnesia 30 Ml Oral.Susp) 30 ml PO DAILY PRN PRN Reason: Constipation Last Admin: 05/23/21 20:28 Dose: 30 ml Documented by: Melatonin (Melatonin 3 Mg Tablet) 6 mg PO BEDTIME [facility] Last Admin: 05/23/21 20:28 Dose: 6 mg Documented by: Patient Own Medication (Restasis ) 1 each EYE-BOTH BID [facility] Last Admin: 05/24/21 08:34 Dose: 1 each Documented by: Nystatin (Nystatin Powder 15 Gm Bottle) 1 appl TOPICAL BID [facility]; Protocol Last Admin: 05/24/21 08:34 Dose: 1 appl Documented by: Olanzapine (Olanzapine 2.5 Mg Tablet) 2.5 mg PO DAILY [facility] Olanzapine (Olanzapine 5 Mg Tablet) 5 mg PO BEDTIME [facility] Potassium Chloride (Potassium Chloride Er 10 Meq Capsule.Er) 10 meq PO DAILY [facility] Last Admin: 05/24/21 08:31 Dose: 10 meq Documented by: Simethicone (Simethicone 80 Mg Tab.Chew) 80 mg PO QIDWMHS PRN PRN Reason: Gas Spironolactone (Spironolactone 25 Mg Tablet) 25 mg PO DAILY [facility]; Protocol Last Admin: 05/24/21 08:32 Dose: 25 mg Documented by: Tiotropium [place] (Tiotropium [place] 18 Mcg Cap.W.Dev) 1 puff INHALE RDAILY [facility] Last Admin: 05/24/21 08:34 Dose: 1 puff Documented by: Trazodone HCl (Trazodone Hcl 100 Mg Tablet) 100 mg PO BEDTIME [facility] Last Admin: 05/23/21 20:28 Dose: 100 mg Documented by: Allergies Allergies Allergy/AdvReac Type Severity Reaction Status Date / Time epinephrine AdvReac HTN Verified 05/19/21 13:29 hydrochlorothiazide AdvReac hypokalemia Verified 05/19/21 13:28 triamterene AdvReac hypokalemia Verified 05/19/21 13:27 Assessment & Plan Assessment & Plan (1) Schizoaffective disorder: Status: Acute Code(s): F25.9 - Schizoaffective disorder, unspecified (2) Hypertension: Status: Inactive Code(s): I10 - Essential (primary) hypertension Assessment and Plan: Mrs. Rojas is a 65 year-old woman with hx of schizoaffective disorder who was admitted due to increased anxious mood, ruminating thoughts, AH, vague paranoia and passive SI. 05/24- pt reports improved sleep, less anxious mood, less depressed mood. PLAN 1.decrease clonazepam from 1mg po qhs to 0.5mg po qhs. 2. will continue latuda at current dose but suspect at this point this medication not doing much for pt. 3. Increase olanzapine 2.5 mg po daily and 5mg po qhs. 4. Aftercare planning. Greater than 50% of the session was spent on counseling and/or coordination of care Reason for contiued inpatient stay Substantial Risk for: inability to function
[2021-05-24] MEDS: hydrOXYzine HCL 25 MG TABLET PO (16:55)
[2021-05-24] MEDS: Lurasidone HCl 40 MG TABLET 120 MG PO (17:35)
[2021-05-24 21:00] VITALS: BP 139/101; PULSE 84; RESP 18; TEMP 36.3; O2SAT 96
[2021-05-24] MEDS: Sennosides/Docusate Sodium TABLET 2 TAB PO (21:14)
[2021-05-24] MEDS: Melatonin 3 MG TABLET 6 MG PO (21:14)
[2021-05-24] MEDS: traZODone HCL 100 MG TABLET PO (21:15)
[2021-05-24] MEDS: OLANZapine 5 MG TABLET PO (21:15)
[2021-05-25 06:00] VITALS: BP 138/83; PULSE 80; RESP 18; TEMP 36.6; O2SAT 98
[2021-05-25 10:29] VITALS: BP 138/83; PULSE 80
[2021-05-25] MEDS: Losartan Potassium 50 MG TABLET 100 MG PO (10:29)
[2021-05-25 10:30] VITALS: BP 138/83; PULSE 80
[2021-05-25] MEDS: Spironolactone 25 MG TABLET PO (10:30)
[2021-05-25] MEDS: clonazePAM 0.5 MG TABLET PO ×2 (10:30→21:13)
[2021-05-25] MEDS: Escitalopram Oxalate 5 MG TABLET PO (10:31)
[2021-05-25] MEDS: OLANZapine 2.5 MG TABLET PO (10:31)
[2021-05-25] MEDS: Fluticasone Propionate 250 MCG BLST.W.DEV 1 PUFF INHALE ×2 (10:32→22:17)
[2021-05-25] MEDS: Nystatin Powder 15 GM BOTTLE 1 APPL TOPICAL ×2 (10:32→22:20)
--- NOTE | 2021-05-25 15:15 | P.PNPSI_ITS ---
Subjective Subjective Date of Service: 05/25/21 Reason For Visit: anxiety/depression Interim History: pt reports she continues to do better than prior. no concerns for MD aside from asking if she is still on track to discharge . MD refers her to speak with nunu tomorrow. per staff, pt has been visible, anxious. interacting with peers. c/o 5/10 anxiety (due to peers fighting). slept better last night. eating and sleeping. no SI. rumination better since medication change to olanzapine from perphenazine. Mental Status Exam Mental Status Exam Narrative: Appearance: casually groomed, good hygiene, anxious Behavior: anxious but cooperative psychomotor: no agitation or retardation noted Speech:clear, normal rate/rhythm, spontaneous Thought process:mostly linear Thought content: no overt paranoia Mood: anxious Affect: congruent SI:denies HI:none expressed VH/AH:none expressed Insight/judgment: fair x 2. Memory/cog: alert, oriented x 3. some memory gaps but not formally tested. May benefit from MOCA. Diagnostics Vital Signs (24Hr): Vital Signs - 24 hr 05/24/21 21:00 05/25/21 06:00 05/25/21 10:29 Temperature 97.3 F 97.9 F Pulse Rate 84 80 80 Respiratory Rate 18 18 Blood Pressure 139/101 H 138/83 138/83 Pulse Oximetry 96 98 05/25/21 10:30 Temperature Pulse Rate 80 Respiratory Rate Blood Pressure 138/83 Pulse Oximetry Body Mass Index 30.0 Labs Results: 05/22/21 08:13 Medications Medications Current Medications Acetaminophen (Acetaminophen 325 Mg Tablet) 650 mg PO Q6H PRN PRN Reason: Headache/Pain Mild Scale (1-3) Last Admin: 05/23/21 10:48 Dose: 650 mg Documented by: Al Hydroxide/Mg Hydroxide (Magnesium Hydrox/Alum Hydrox 30 Ml Oral.Susp) 30 ml PO Q6H PRN PRN Reason: Heartburn/Nausea Albuterol Sulfate (Albuterol Sulfate 90 Mcg 8 Gm Inhaler) 2 puff INHALE Q4H PRN PRN Reason: Wheezing Last Admin: 05/19/21 21:19 Dose: 2 puff Documented by: Clonazepam (Clonazepam 0.5 Mg Tablet) 0.5 mg PO BID [facility] Last Admin: 05/25/21 10:30 Dose: 0.5 mg Documented by: Escitalopram Oxalate (Escitalopram Oxalate 5 Mg Tablet) 5 mg PO DAILY [facility] Last Admin: 05/25/21 10:31 Dose: 5 mg Documented by: Fluticasone Propionate (Fluticasone Propionate 250 Mcg Blst.W.Dev) 1 puff INHALE RBID [facility] Last Admin: 05/25/21 10:32 Dose: 1 puff Documented by: Hydroxyzine HCl (Hydroxyzine Hcl 25 Mg Tablet) 25 mg PO Q6H PRN PRN Reason: Anxiety Last Admin: 05/24/21 16:55 Dose: 25 mg Documented by: Losartan Potassium (Losartan Potassium 50 Mg Tablet) 100 mg PO DAILY [facility]; Protocol Last Admin: 05/25/21 10:29 Dose: 100 mg Documented by: Lurasidone HCl (Lurasidone Hcl 40 Mg Tablet) 120 mg PO DAILY@1700 [facility] Last Admin: 05/24/21 17:35 Dose: 120 mg Documented by: Magnesium Hydroxide (Milk Of Magnesia 30 Ml Oral.Susp) 30 ml PO DAILY PRN PRN Reason: Constipation Last Admin: 05/23/21 20:28 Dose: 30 ml Documented by: Melatonin (Melatonin 3 Mg Tablet) 6 mg PO BEDTIME [facility] Last Admin: 05/24/21 21:14 Dose: 6 mg Documented by: Patient Own Medication (Restasis ) 1 each EYE-BOTH BID [facility] Last Admin: 05/25/21 10:33 Dose: 1 each Documented by: Nystatin (Nystatin Powder 15 Gm Bottle) 1 appl TOPICAL BID [facility]; Protocol Last Admin: 05/25/21 10:32 Dose: 1 appl Documented by: Olanzapine (Olanzapine 2.5 Mg Tablet) 2.5 mg PO DAILY [facility] Last Admin: 05/25/21 10:31 Dose: 2.5 mg Documented by: Olanzapine (Olanzapine 5 Mg Tablet) 5 mg PO BEDTIME [facility] Last Admin: 05/24/21 21:15 Dose: 5 mg Documented by: Polyethylene Glycol (Polyethylene Glycol 3350 17 Gm Powd.Pack) 17 gm PO DAILY PRN PRN Reason: Constipation Potassium Chloride (Potassium Chloride Er 10 Meq Capsule.Er) 10 meq PO DAILY [facility] Last Admin: 05/25/21 10:31 Dose: 10 meq Documented by: Senna/Docusate Sodium (Sennosides/Docusate Sodium Tablet) 2 tab PO BEDTIME [facility] Last Admin: 05/24/21 21:14 Dose: 2 tab Documented by: Simethicone (Simethicone 80 Mg Tab.Chew) 80 mg PO QIDWMHS PRN PRN Reason: Gas Spironolactone (Spironolactone 25 Mg Tablet) 25 mg PO DAILY [facility]; Protocol Last Admin: 05/25/21 10:30 Dose: 25 mg Documented by: Tiotropium [place] (Tiotropium [place] 18 Mcg Cap.W.Dev) 1 puff INHALE RDAILY [facility] Last Admin: 05/25/21 11:32 Dose: 1 puff Documented by: Trazodone HCl (Trazodone Hcl 100 Mg Tablet) 100 mg PO BEDTIME [facility] Last Admin: 05/24/21 21:15 Dose: 100 mg Documented by: Allergies Allergies Allergy/AdvReac Type Severity Reaction Status Date / Time epinephrine AdvReac HTN Verified 05/19/21 13:29 hydrochlorothiazide AdvReac hypokalemia Verified 05/19/21 13:28 triamterene AdvReac hypokalemia Verified 05/19/21 13:27 Assessment & Plan Assessment & Plan (1) Schizoaffective disorder: Status: Acute Code(s): F25.9 - Schizoaffective disorder, unspecified (2) Hypertension: Status: Inactive Code(s): I10 - Essential (primary) hypertension Assessment and Plan: Mrs. Rojas is a 65 year-old woman with hx of schizoaffective disorder who was admitted due to increased anxious mood, ruminating thoughts, AH, vague paranoia and passive SI. 05/24- pt reports improved sleep, less anxious mood, less depressed mood. PLAN 1.decrease clonazepam from 1mg po qhs to 0.5mg po qhs. 2. will continue latuda at current dose but suspect at this point this medication not doing much for pt. 3. Increase olanzapine 2.5 mg po daily and 5mg po qhs. 4. Aftercare planning. Greater than 50% of the session was spent on counseling and/or coordination of care Reason for contiued inpatient stay Substantial Risk for: inability to function and rapid decompensation
[2021-05-25] MEDS: Lurasidone HCl 40 MG TABLET 120 MG PO (17:31)
[2021-05-25] MEDS: Sennosides/Docusate Sodium TABLET 2 TAB PO (21:12)
[2021-05-25] MEDS: Melatonin 3 MG TABLET 6 MG PO (21:12)
[2021-05-25] MEDS: OLANZapine 5 MG TABLET PO (21:12)
[2021-05-25] MEDS: traZODone HCL 100 MG TABLET PO (21:13)
[2021-05-25] MEDS: hydrOXYzine HCL 25 MG TABLET PO (21:26)
[2021-05-26 06:00] VITALS: BP 169/74; PULSE 73; RESP 18; TEMP 36.3; O2SAT 98
[2021-05-26] MEDS: clonazePAM 0.5 MG TABLET PO ×2 (08:46→20:40)
[2021-05-26 08:47] VITALS: BP 169/74; PULSE 73
[2021-05-26] MEDS: Losartan Potassium 50 MG TABLET 100 MG PO (08:47)
[2021-05-26] MEDS: Escitalopram Oxalate 5 MG TABLET PO (08:47)
[2021-05-26 08:48] VITALS: BP 169/74; PULSE 73
[2021-05-26] MEDS: Spironolactone 25 MG TABLET PO (08:48)
[2021-05-26] MEDS: Nystatin Powder 15 GM BOTTLE 1 APPL TOPICAL ×2 (08:49→20:43)
[2021-05-26] MEDS: OLANZapine 2.5 MG TABLET PO (08:49)
[2021-05-26] MEDS: Fluticasone Propionate 250 MCG BLST.W.DEV 1 PUFF INHALE ×2 (08:50→20:43)
[2021-05-26] MEDS: polyethylene glycoL 3350 17 GM POWD.PACK PO (08:57)
--- NOTE | 2021-05-26 14:54 | HO.PSYCHPN ---
Subjective Subjective Date of Service: 05/26/21 Reason For Visit: anxiety/depression Interim History: pt reports she is comfortable leaving monday. she states she is a bit anxious due to the level of commotion on the unit, otherwise she would consider staying longer. she reports initially the latuda cost a lot, but she has since found a way around it. she will be getting new insurance soon in any case. she would like to not prolong her stay here and so would like to not change to a different medication at the moment. she will see what happens once her new insurance is in effect. she c/o insomnia and agrees to have trazodone increased to 150 mg QHS. no other complaints or requests. Mental Status Exam Mental Status Exam Narrative: Appearance: casually groomed, good hygiene, anxious Behavior: anxious but cooperative psychomotor: no agitation or retardation noted Speech:clear, normal rate/rhythm, spontaneous Thought process: linear, logical Thought content: no overt paranoia Mood: anxious Affect: congruent SI:none expressed HI:none expressed VH/AH:none expressed Insight/judgment: fair x 2. Memory/cog: alert, oriented x 3. some memory gaps but not formally tested. May benefit from MOCA. Diagnostics Vital Signs (24Hr): Vital Signs - 24 hr 05/26/21 08:47 05/26/21 08:48 Pulse Rate 73 73 Blood Pressure 169/74 H 169/74 H Body Mass Index 30.0 Labs Results: 05/22/21 08:13 Medications Medications Current Medications Acetaminophen (Acetaminophen 325 Mg Tablet) 650 mg PO Q6H PRN PRN Reason: Headache/Pain Mild Scale (1-3) Last Admin: 05/23/21 10:48 Dose: 650 mg Documented by: Al Hydroxide/Mg Hydroxide (Magnesium Hydrox/Alum Hydrox 30 Ml Oral.Susp) 30 ml PO Q6H PRN PRN Reason: Heartburn/Nausea Albuterol Sulfate (Albuterol Sulfate 90 Mcg 8 Gm Inhaler) 2 puff INHALE Q4H PRN PRN Reason: Wheezing Last Admin: 05/19/21 21:19 Dose: 2 puff Documented by: Clonazepam (Clonazepam 0.5 Mg Tablet) 0.5 mg PO BID [facility] Last Admin: 05/26/21 08:46 Dose: 0.5 mg Documented by: Escitalopram Oxalate (Escitalopram Oxalate 5 Mg Tablet) 5 mg PO DAILY [facility] Last Admin: 05/26/21 08:47 Dose: 5 mg Documented by: Fluticasone Propionate (Fluticasone Propionate 250 Mcg Blst.W.Dev) 1 puff INHALE RBID [facility] Last Admin: 05/26/21 08:50 Dose: 1 puff Documented by: Hydroxyzine HCl (Hydroxyzine Hcl 25 Mg Tablet) 25 mg PO Q6H PRN PRN Reason: Anxiety Last Admin: 05/25/21 21:26 Dose: 25 mg Documented by: Losartan Potassium (Losartan Potassium 50 Mg Tablet) 100 mg PO DAILY [facility]; Protocol Last Admin: 05/26/21 08:47 Dose: 100 mg Documented by: Lurasidone HCl (Lurasidone Hcl 40 Mg Tablet) 120 mg PO DAILY@1700 [facility] Last Admin: 05/25/21 17:31 Dose: 120 mg Documented by: Magnesium Hydroxide (Milk Of Magnesia 30 Ml Oral.Susp) 30 ml PO DAILY PRN PRN Reason: Constipation Last Admin: 05/23/21 20:28 Dose: 30 ml Documented by: Melatonin (Melatonin 3 Mg Tablet) 6 mg PO BEDTIME [facility] Last Admin: 05/25/21 21:12 Dose: 6 mg Documented by: Patient Own Medication (Restasis ) 1 each EYE-BOTH BID [facility] Last Admin: 05/26/21 08:49 Dose: 1 each Documented by: Nystatin (Nystatin Powder 15 Gm Bottle) 1 appl TOPICAL BID [facility]; Protocol Last Admin: 05/26/21 08:49 Dose: 1 appl Documented by: Olanzapine (Olanzapine 2.5 Mg Tablet) 2.5 mg PO DAILY [facility] Last Admin: 05/26/21 08:49 Dose: 2.5 mg Documented by: Olanzapine (Olanzapine 5 Mg Tablet) 5 mg PO BEDTIME [facility] Last Admin: 05/25/21 21:12 Dose: 5 mg Documented by: Polyethylene Glycol (Polyethylene Glycol 3350 17 Gm Powd.Pack) 17 gm PO DAILY PRN PRN Reason: Constipation Last Admin: 05/26/21 08:57 Dose: 17 gm Documented by: Potassium Chloride (Potassium Chloride Er 10 Meq Capsule.Er) 10 meq PO DAILY [facility] Last Admin: 05/26/21 08:46 Dose: 10 meq Documented by: Senna/Docusate Sodium (Sennosides/Docusate Sodium Tablet) 2 tab PO BEDTIME [facility] Last Admin: 05/25/21 21:12 Dose: 2 tab Documented by: Simethicone (Simethicone 80 Mg Tab.Chew) 80 mg PO QIDWMHS PRN PRN Reason: Gas Spironolactone (Spironolactone 25 Mg Tablet) 25 mg PO DAILY [facility]; Protocol Last Admin: 05/26/21 08:48 Dose: 25 mg Documented by: Tiotropium [place] (Tiotropium [place] 18 Mcg Cap.W.Dev) 1 puff INHALE RDAILY [facility] Last Admin: 05/26/21 08:53 Dose: 1 puff Documented by: Trazodone HCl (Trazodone Hcl 50 Mg Tablet) 150 mg PO BEDTIME [facility] Allergies Allergies Allergy/AdvReac Type Severity Reaction Status Date / Time epinephrine AdvReac HTN Verified 05/19/21 13:29 hydrochlorothiazide AdvReac hypokalemia Verified 05/19/21 13:28 triamterene AdvReac hypokalemia Verified 05/19/21 13:27 Assessment & Plan Assessment & Plan (1) Schizoaffective disorder: Status: Acute Code(s): F25.9 - Schizoaffective disorder, unspecified (2) Hypertension: Status: Inactive Code(s): I10 - Essential (primary) hypertension Assessment and Plan: Mrs. Rojas is a 65 year-old woman with hx of schizoaffective disorder who was admitted due to increased anxious mood, ruminating thoughts, AH, vague paranoia and passive SI. 05/24- pt reports improved sleep, less anxious mood, less depressed mood. PLAN 1.decreased clonazepam from 1mg po qhs to 0.5mg po qhs. 2. will continue latuda at current dose but suspect at this point this medication not doing much for pt. 3. Increased olanzapine 2.5 mg po daily and 5mg po qhs. 4. increased HS trazodone to 150 mg as of 05/26. 5. DC 05/28 to home. Greater than 50% of the session was spent on counseling and/or coordination of care Reason for contiued inpatient stay Substantial Risk for: harm to self, inability to function and rapid decompensation
[2021-05-26] MEDS: Lurasidone HCl 40 MG TABLET 120 MG PO (17:46)
[2021-05-26 18:00] VITALS: BP 132/86; PULSE 76; RESP 16; TEMP 36.6; O2SAT 96
[2021-05-26] MEDS: Melatonin 3 MG TABLET 6 MG PO (20:39)
[2021-05-26] MEDS: OLANZapine 5 MG TABLET PO (20:39)
[2021-05-26] MEDS: Sennosides/Docusate Sodium TABLET 2 TAB PO (20:39)
[2021-05-26] MEDS: traZODone HCL 50 MG TABLET 150 MG PO (20:40)
[2021-05-26] MEDS: Milk of Magnesia 30 ML ORAL.SUSP PO (20:54)
[2021-05-27 07:56] VITALS: BP 142/71; PULSE 71; TEMP 36.6; O2SAT 100
[2021-05-27] MEDS: clonazePAM 0.5 MG TABLET PO ×2 (08:31→20:25)
[2021-05-27] MEDS: OLANZapine 2.5 MG TABLET PO (08:32)
[2021-05-27] MEDS: Escitalopram Oxalate 5 MG TABLET PO (08:32)
[2021-05-27 08:34] VITALS: BP 142/71; PULSE 77
[2021-05-27] MEDS: Spironolactone 25 MG TABLET PO (08:34)
[2021-05-27 08:35] VITALS: BP 142/71; PULSE 77
[2021-05-27] MEDS: Losartan Potassium 50 MG TABLET 100 MG PO (08:35)
[2021-05-27] MEDS: Nystatin Powder 15 GM BOTTLE 1 APPL TOPICAL ×2 (08:39→20:36)
[2021-05-27] MEDS: Fluticasone Propionate 250 MCG BLST.W.DEV 1 PUFF INHALE ×2 (08:50→20:36)
--- NOTE | 2021-05-27 10:38 | P.PNPSI_ITS ---
Subjective Subjective Date of Service: 05/27/21 Reason For Visit: anxiety/depression Interim History: pt reports she is feeling well today, less aggravated about the noise. feeling calmer. describes her mood as even. denies SI/SIBI. still planning to discharge tomorrow. would like to meet with nunu prior to discharge. mentions nunu had spoken with her about a medication to help control weight in people on neuroleptics (metfomin?) and would like to discuss that with nunu prior to discharge. reports she slept well last night. per staff, remains anxious, especially with the noise on the unit. slept well overnight. Mental Status Exam Mental Status Exam Narrative: Appearance: casually groomed, good hygiene, anxious Behavior: anxious but cooperative psychomotor: no agitation or retardation noted Speech:clear, normal rate/rhythm, spontaneous Thought process: linear, logical Thought content: no overt paranoia Mood: even Affect: congruent SI:none HI:none expressed VH/AH:none expressed Insight/judgment: fair x 2. Memory/cog: alert, oriented x 3. some memory gaps but not formally tested. May benefit from MOCA. Diagnostics Vital Signs (24Hr): Vital Signs - 24 hr 05/26/21 18:00 05/27/21 07:56 05/27/21 08:34 Temperature 97.8 F 97.9 F Pulse Rate 76 71 77 Respiratory Rate 16 Blood Pressure 132/86 142/71 H 142/71 H Pulse Oximetry 96 100 05/27/21 08:35 Temperature Pulse Rate 77 Respiratory Rate Blood Pressure 142/71 H Pulse Oximetry Body Mass Index 30.0 Labs Results: 05/22/21 08:13 Medications Medications Current Medications Acetaminophen (Acetaminophen 325 Mg Tablet) 650 mg PO Q6H PRN PRN Reason: Headache/Pain Mild Scale (1-3) Last Admin: 05/23/21 10:48 Dose: 650 mg Documented by: Al Hydroxide/Mg Hydroxide (Magnesium Hydrox/Alum Hydrox 30 Ml Oral.Susp) 30 ml PO Q6H PRN PRN Reason: Heartburn/Nausea Albuterol Sulfate (Albuterol Sulfate 90 Mcg 8 Gm Inhaler) 2 puff INHALE Q4H PRN PRN Reason: Wheezing Last Admin: 05/19/21 21:19 Dose: 2 puff Documented by: Clonazepam (Clonazepam 0.5 Mg Tablet) 0.5 mg PO BID [facility] Last Admin: 05/27/21 08:31 Dose: 0.5 mg Documented by: Escitalopram Oxalate (Escitalopram Oxalate 5 Mg Tablet) 5 mg PO DAILY [facility] Last Admin: 05/27/21 08:32 Dose: 5 mg Documented by: Fluticasone Propionate (Fluticasone Propionate 250 Mcg Blst.W.Dev) 1 puff INHALE RBID [facility] Last Admin: 05/27/21 08:50 Dose: 1 puff Documented by: Hydroxyzine HCl (Hydroxyzine Hcl 25 Mg Tablet) 25 mg PO Q6H PRN PRN Reason: Anxiety Last Admin: 05/25/21 21:26 Dose: 25 mg Documented by: Losartan Potassium (Losartan Potassium 50 Mg Tablet) 100 mg PO DAILY [facility]; Protocol Last Admin: 05/27/21 08:35 Dose: 100 mg Documented by: Lurasidone HCl (Lurasidone Hcl 40 Mg Tablet) 120 mg PO DAILY@1700 [facility] Last Admin: 05/26/21 17:46 Dose: 120 mg Documented by: Magnesium Hydroxide (Milk Of Magnesia 30 Ml Oral.Susp) 30 ml PO DAILY PRN PRN Reason: Constipation Last Admin: 05/26/21 20:54 Dose: 30 ml Documented by: Melatonin (Melatonin 3 Mg Tablet) 6 mg PO BEDTIME [facility] Last Admin: 05/26/21 20:39 Dose: 6 mg Documented by: Patient Own Medication (Restasis ) 1 each EYE-BOTH BID [facility] Last Admin: 05/27/21 08:46 Dose: 1 each Documented by: Nystatin (Nystatin Powder 15 Gm Bottle) 1 appl TOPICAL BID [facility]; Protocol Last Admin: 05/27/21 08:39 Dose: 1 appl Documented by: Olanzapine (Olanzapine 2.5 Mg Tablet) 2.5 mg PO DAILY [facility] Last Admin: 05/27/21 08:32 Dose: 2.5 mg Documented by: Olanzapine (Olanzapine 5 Mg Tablet) 5 mg PO BEDTIME [facility] Last Admin: 05/26/21 20:39 Dose: 5 mg Documented by: Polyethylene Glycol (Polyethylene Glycol 3350 17 Gm Powd.Pack) 17 gm PO DAILY PRN PRN Reason: Constipation Last Admin: 05/26/21 08:57 Dose: 17 gm Documented by: Potassium Chloride (Potassium Chloride Er 10 Meq Capsule.Er) 10 meq PO DAILY [facility] Last Admin: 05/27/21 08:31 Dose: 10 meq Documented by: Senna/Docusate Sodium (Sennosides/Docusate Sodium Tablet) 2 tab PO BEDTIME [facility] Last Admin: 05/26/21 20:39 Dose: 2 tab Documented by: Simethicone (Simethicone 80 Mg Tab.Chew) 80 mg PO QIDWMHS PRN PRN Reason: Gas Spironolactone (Spironolactone 25 Mg Tablet) 25 mg PO DAILY [facility]; Protocol Last Admin: 05/27/21 08:34 Dose: 25 mg Documented by: Tiotropium [place] (Tiotropium [place] 18 Mcg Cap.W.Dev) 1 puff INHALE RDAILY [facility] Last Admin: 05/26/21 08:53 Dose: 1 puff Documented by: Trazodone HCl (Trazodone Hcl 50 Mg Tablet) 150 mg PO BEDTIME [facility] Last Admin: 05/26/21 20:40 Dose: 150 mg Documented by: Allergies Allergies Allergy/AdvReac Type Severity Reaction Status Date / Time epinephrine AdvReac HTN Verified 05/19/21 13:29 hydrochlorothiazide AdvReac hypokalemia Verified 05/19/21 13:28 triamterene AdvReac hypokalemia Verified 05/19/21 13:27 Assessment & Plan Assessment & Plan (1) Schizoaffective disorder: Status: Acute Code(s): F25.9 - Schizoaffective disorder, unspecified (2) Hypertension: Status: Inactive Code(s): I10 - Essential (primary) hypertension Assessment and Plan: Mrs. Rojas is a 65 year-old woman with hx of schizoaffective disorder who was admitted due to increased anxious mood, ruminating thoughts, AH, vague paranoia and passive SI. 05/24- pt reports improved sleep, less anxious mood, less depressed mood. PLAN 1. decreased clonazepam from 1mg po qhs to 0.5mg po qhs. 2. will continue latuda at current dose but suspect at this point this medication not doing much for pt. 3. Increased olanzapine 2.5 mg po daily and 5mg po qhs. 4. increased HS trazodone to 150 mg as of 05/26. 5. DC 05/28 to home. Greater than 50% of the session was spent on counseling and/or coordination of care Reason for contiued inpatient stay Substantial Risk for: harm to self and rapid decompensation
[2021-05-27] MEDS: Acetaminophen 325 MG TABLET 650 MG PO (16:25)
[2021-05-27] MEDS: Lurasidone HCl 40 MG TABLET 120 MG PO (17:47)
[2021-05-27 20:23] VITALS: BP 182/91; PULSE 72; RESP 18; TEMP 36.7; O2SAT 100
[2021-05-27] MEDS: Melatonin 3 MG TABLET 6 MG PO (20:25)
[2021-05-27] MEDS: traZODone HCL 50 MG TABLET 150 MG PO (20:25)
[2021-05-27] MEDS: Sennosides/Docusate Sodium TABLET 2 TAB PO (20:25)
[2021-05-27] MEDS: OLANZapine 5 MG TABLET PO (22:12)
[2021-05-27] MEDS: hydrOXYzine HCL 25 MG TABLET PO (22:13)
[2021-05-27 22:19] VITALS: BP 152/80; PULSE 89; O2SAT 97
[2021-05-28 06:00] VITALS: BP 149/72; PULSE 74; RESP 18; TEMP 36.7; O2SAT 98
[2021-05-28] MEDS: clonazePAM 0.5 MG TABLET PO (08:17)
[2021-05-28] MEDS: Spironolactone 25 MG TABLET PO (08:17)
[2021-05-28] MEDS: Escitalopram Oxalate 5 MG TABLET PO (08:17)
[2021-05-28] MEDS: Losartan Potassium 50 MG TABLET 100 MG PO (08:17)
[2021-05-28] MEDS: OLANZapine 2.5 MG TABLET PO (08:17)
[2021-05-28] MEDS: Fluticasone Propionate 250 MCG BLST.W.DEV 1 PUFF INHALE (08:25)
[2021-05-28] MEDS: Nystatin Powder 15 GM BOTTLE 1 APPL TOPICAL (08:25)
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
== END 2021-05-28 14:43 | disposition home or self-care (01) | DRG 750 ==
PROVIDERS: Admitting Provider Psychiatry & Neurology Psychiatry; PCP Nurse Practitioner Family; Visit Provider Social Worker
DX: F25.9 Schizoaffective disorder, unspecified (principal); I10 Essential (primary) hypertension; Z23 Encounter for immunization; Z87.891 Personal history of nicotine dependence; Z79.51 Long term (current) use of inhaled steroids; Z79.899 Other long term (current) drug therapy
CPT/HCPCS: 36415; 80061; 82607; 82746; 83036; 84132; 84443; 90686